=== PATIENT | female | born 1975 | race Caucasian/White ===

== ENCOUNTER 2017-01-30 10:10 | Inpatient (IN) | payer OTHER ==
[~2017-01-30] VITALS: Ht 152.4 cm; Wt 69.4 kg
[~2017-01-30 10:10] MED LIST: ALBU8.5H3 IH; IBUP-2070 PO; IRON18TA PO; PERCT PO; PREN1TAB52 PO
[2017-01-30] MEDS ORDERED: RINGERS SOLUTION,LACTATED 1,000 ML IV ONE (10:56)
[2017-01-30] MEDS ORDERED: METOCLOPRAMIDE HCL 5 MG/ML 2 ML VIAL IVP ONE (11:00)
[2017-01-30] MEDS ORDERED: CITRIC ACID/SODIUM CITRATE 30 ML SOLUTION UDCUP PO ONE (11:00)
[2017-01-30] MEDS ORDERED: MIDAZOLAM HCL 2 MG/2 ML VIAL ONE (11:10)
[2017-01-30] MEDS ORDERED: FentaNYL CITRATE-PF 100 MCG/2 ML VIAL ONE (11:10)
[2017-01-30] MEDS ORDERED: SODIUM CHLORIDE 0.9% 100 ML ONE (11:10)
[2017-01-30] MEDS ORDERED: MORPHINE SULFATE/PF 0.5 MG/ML 10 ML AMP ONE (11:10)
[2017-01-30 11:45] LABS: BASOPHILS % (AUTO) 0.7 % (0.0-2.0); EOSINOPHILS % (AUTO) 1.3 % (1.0-6.0); HEMATOCRIT 36.9 % (36-46); HEMOGLOBIN 12.5 g/dL (12.0-16.0); LYMPHOCYTES # (AUTO) 1.7 K/uL (1.0-4.8); LYMPHOCYTES % (AUTO) 17.9 % (22.0-44.0); MEAN CORPUSCULAR HEMOGLOBIN 30.1 pg (26.0-34.0); MEAN CORPUSCULAR HGB CONC 33.8 G/dL (31.0-37.0); MEAN CORPUSCULAR VOLUME 89 fL (80-100); MONOCYTES # (AUTO) 0.4 K/uL (0.1-1.0); MONOCYTES % (AUTO) 4.5 % (2.0-9.0); NEUTROPHILS # (AUTO) 7.2 K/uL (1.8-7.7); NEUTROPHILS % (AUTO) 75.6 % (40.0-70.0); PLATELET COUNT (AUTO) 161 K/uL (150-450); RED BLOOD CELL COUNT(AUTO) 4.16 MIL/uL (4.00-5.20); WHITE BLOOD COUNT (AUTO) 9.5 K/uL (4.5-11.0)
[2017-01-30] MEDS ORDERED: INFLUENZA VIRUS VACCINE QVS 2017-18 (3YR+)/PF 60 MCG/0.5 ML SYRINGE IM ONE (11:45)
[2017-01-30] MEDS ORDERED: MORPHINE SULFATE 4 MG/ML SYRINGE IVP PRN (13:30)
[2017-01-30] MEDS ORDERED: FentaNYL CITRATE-PF 100 MCG/2 ML VIAL IVP PRN ×2 (13:30)
[2017-01-30] MEDS ORDERED: ONDANSETRON HCL 4 MG/2 ML VIAL IVP PRN ×2 (13:30)
[2017-01-30] MEDS ORDERED: OXYGEN THERAPY IH SCH ×2 (13:30)
[2017-01-30] MEDS ORDERED: MORPHINE SULFATE 2 MG/ML SYRINGE IVP PRN (13:30)
[2017-01-30] MEDS ORDERED: DiphenhydrAMINE HCL 50 MG/ML VIAL IVP PRN ×2 (13:30)
[2017-01-30] MEDS ORDERED: LANOLIN 7 GM OINTMENT TP PRN (14:00)
[2017-01-30] MEDS ORDERED: IBUPROFEN 800 MG TABLET PO PRN (14:00)
[2017-01-30] MEDS: NALBUPHINE HCL 10 MG/ML VIAL IVP SCH (17:03)
[2017-01-30] MEDS: KETOROLAC TROMETHAMINE 30 MG/ML VIAL IVP SCH (20:09)
[2017-01-30] MEDS: RINGERS SOLUTION,LACTATED 1,000 ML IV SCH (20:53)
[2017-01-30] MEDS: SENNA/DOCUSATE SODIUM 187-50 MG TABLET PO SCH (21:00)
[2017-01-30] MEDS ORDERED: KETOROLAC TROMETHAMINE 60 MG/2 ML VIAL IM ONE (21:28)
[2017-01-30] MEDS ORDERED: EPHEDrine SULFATE 50 MG/ML VIAL IM ONE (21:28)
[2017-01-30] MEDS ORDERED: OXYTOCIN 10 UNITS/ML VIAL IM ONE (21:28)
[2017-01-30] MEDS ORDERED: DEXAMETHASONE SOD PHOS 4 MG/ML VIAL IVP ONE (21:28)
[2017-01-30] MEDS ORDERED: ONDANSETRON HCL 4 MG/2 ML VIAL IVP ONE (21:28)
[2017-01-31] MEDS: NALBUPHINE HCL 10 MG/ML VIAL IVP SCH ×2 (00:27→05:44)
[2017-01-31] MEDS ORDERED: PNEUMOCOCCAL VACCINE POLYVALENT 0.5 ML VIAL [PPSV23] IM ONE (01:45)
[2017-01-31] MEDS: KETOROLAC TROMETHAMINE 30 MG/ML VIAL IVP SCH ×2 (02:48→08:15)
[2017-01-31] MEDS: RINGERS SOLUTION,LACTATED 1,000 ML IV SCH (04:51)
[2017-01-31 07:19] LABS: BASOPHILS % (AUTO) 0.1 % (0.0-2.0); EOSINOPHILS % (AUTO) 0.2 % (1.0-6.0); HEMATOCRIT 31.8 % (36-46); HEMOGLOBIN 10.7 g/dL (12.0-16.0); LYMPHOCYTES # (AUTO) 1.7 K/uL (1.0-4.8); LYMPHOCYTES % (AUTO) 13.1 % (22.0-44.0); MEAN CORPUSCULAR HEMOGLOBIN 30.5 pg (26.0-34.0); MEAN CORPUSCULAR HGB CONC 33.5 G/dL (31.0-37.0); MEAN CORPUSCULAR VOLUME 91 fL (80-100); MONOCYTES # (AUTO) 0.5 K/uL (0.1-1.0); MONOCYTES % (AUTO) 4.2 % (2.0-9.0); NEUTROPHILS # (AUTO) 10.8 K/uL (1.8-7.7); NEUTROPHILS % (AUTO) 82.4 % (40.0-70.0); RED CELL DISTRIBUTION WIDTH 14.7 % (11.5-14.5); WHITE BLOOD COUNT (AUTO) 13.1 K/uL (4.5-11.0)
[2017-01-31] MEDS: SENNA/DOCUSATE SODIUM 187-50 MG TABLET PO SCH ×2 (08:15→21:00)
[2017-01-31] MEDS: IBUPROFEN 800 MG TABLET PO SCH ×2 (14:13→20:38)
[2017-01-31] MEDS: OxyCODONE HCL/ACETAMINOPHEN 5-325 MG TABLET PO PRN (22:32)
[2017-02-01] MEDS: IBUPROFEN 800 MG TABLET PO SCH ×3 (01:55→20:15)
[2017-02-01] MEDS: OxyCODONE HCL/ACETAMINOPHEN 5-325 MG TABLET PO PRN ×3 (06:22→18:15)
[2017-02-01] MEDS: SENNA/DOCUSATE SODIUM 187-50 MG TABLET PO SCH (20:16)
[2017-02-02] MEDS: IBUPROFEN 800 MG TABLET PO SCH ×3 (01:56→15:59)
[2017-02-02] MEDS: SENNA/DOCUSATE SODIUM 187-50 MG TABLET PO SCH (08:30)
== END 2017-02-02 18:30 | disposition home or self-care (01) | DRG 766 ==
LOC: 4S 10:10 → OBSVTOIN 10:10
PROVIDERS: ADMIT Obstetrics & Gynecology; ATTEND Obstetrics & Gynecology
PROC: 10D00Z1 Extraction of Products of Conception, Low, Open Approach (ICD-10-PCS; principal; 2017-01-30)
PROC: 3E0234Z Introduction of Serum, Toxoid and Vaccine into Muscle, Percutaneous Approach (ICD-10-PCS; 2017-01-31)
DX: O34.211 Maternal care for low transverse scar from previous cesarean delivery (principal); O99.52 Diseases of the respiratory system complicating childbirth; J45.909 Unspecified asthma, uncomplicated; Z3A.39 39 weeks gestation of pregnancy; Z37.0 Single live birth; Z88.2 Allergy status to sulfonamides; Z23 Encounter for immunization
CPT/HCPCS: 86850; 86900; 86901; 87081; 90471; J0690; J1100; J1885; J2250; J2274; J2300; J2405; J2590; J2765; J3010; J3490; J7050; J7120